=== PATIENT | male | born 1975 | race Caucasian/White ===

== ENCOUNTER → 2018-03-15 | Outpatient (CLI) | payer SELFPAY ==
--- NOTE | 2018-03-16 08:01 | RAD ---
Left hand, 3 views, 03/15/2018: HISTORY: Hand pain, injury No fracture or dislocation is identified. The soft tissues are unremarkable. IMPRESSION: No acute bony abnormality is detected. Electronically signed by: Terry Castanon MD (03/16/2018 7:57 AM) [facility] [place]
== END | disposition home or self-care (01) ==
LOC: RAD 18:01
PROVIDERS: ATTEND Family Medicine
DX: S69.92XA Unspecified injury of left wrist, hand and finger(s), initial encounter (principal); X58.XXXA Exposure to other specified factors, initial encounter; Y93.89 Activity, other specified; Y92.89 Other specified places as the place of occurrence of the external cause; Y99.8 Other external cause status
CPT/HCPCS: 73130